=== PATIENT | female | born 1950 | race Caucasian/White ===

== ENCOUNTER 2020-09-11 12:12 | Emergency (ER) | payer OTHER ==
[~2020-09-11] VITALS: Ht 170.2 cm; Wt 116.4 kg
[~2020-09-11 12:12] MED LIST: ALDACTONE50 MG; CARDURA4 MG; CARTIA XT180 M1; CYCLOBENZAPRINE10 MG; FOLIC ACID1 MG; HYDRALAZINE 2525 MG; HYDROCODONE-APA1 TA1; LEVOTHYROXINE0.05 MG; MAGNESIUM OXID400 MG; METFORMIN HCL500 MG; MIRAPEX1.5 MG; OMEPRAZOLE40 MG; PAXIL10 MG; PRINIVIL20 MG; PROAIR HFA8.5 GM; SEROQUEL 50 MG50 MG; TOPROL XL100 MG; VALIUM5 MG; VITAMIN D2000 UNIT; XALATAN2.5 ML
[2020-09-11] MEDS ORDERED: VICTOZA0.6 MG/0.1 SUBQ (12:30)
[2020-09-11] MEDS ORDERED: DULOXETINE HCL60 MG PO (12:32)
[2020-09-11] MEDS ORDERED: VITAMIN D (12:34)
[2020-09-11] MEDS ORDERED: VITAMIN B12 (12:36)
[2020-09-11] MEDS ORDERED: MIRAPEX1 MG PO (12:37)
[2020-09-11] MEDS ORDERED: SEROQUEL 100 M100 M1 PO (12:37)
[2020-09-11 12:41] LABS: ABSOLUTE BASOPHILS 0.1 thou/uL (0.0-0.2); ABSOLUTE EOSINOPHILS 0.3 thou/uL (0.0-0.7); ABSOLUTE LYMPHOCYTES 1.6 thou/uL (0.8-5.3); ABSOLUTE MONOCYTES 0.8 thou/uL (0.0-1.2); ABSOLUTE NEUTROPHILS 5.6 thou/uL (1.6-8.1); BASOPHILS 1.4 %; EOSINOPHILS 3.1 %; HEMATOCRIT 34.3 % (37.0-47.0); HEMOGLOBIN 11.5 gm/dL (12.0-15.0); LYMPHOCYTES 19.2 %; MCH 31.9 pg (26.0-34.0); MCHC 33.5 g/dL (28.0-37.0); MCV 95.2 fL (80.0-100.0); MONOCYTES 9.2 %; MPV 7.6 fl. (7.2-11.1); NUCLEATED RBCS 0 /100WBC; PLATELET COUNT* 286 thou/uL (150-400); POLYS 67.1 %; RBC 3.61 mil/uL (4.20-5.00); RDW-CV 12.6 % (10.5-14.5); WBC 8.3 thou/uL (4.0-11.0)
[2020-09-11 12:50] LABS: CALCIUM 8.5 mg/dL (8.5-10.1); CREATININE 1.1 mg/dL (0.6-1.3); POTASSIUM 4.7 mmol/L (3.5-5.1)
[2020-09-11 12:54] LABS: ALBUMIN 3.7 g/dL (3.4-5.0); INR 0.9; PROTIME 10.1 Seconds (9.20-11.50); TOTAL BILIRUBIN 0.2 mg/dL (<0.1-1.0)
[2020-09-11] MEDS ORDERED: AUGMENTIN 500-1 EACH PO (14:41)
[2020-09-11 14:52] VITALS: BP 114/65
== END 2020-09-11 14:45 | disposition home or self-care (01) ==
LOC: M.ERS 12:12
PROVIDERS: Personal Emergency Response Attendant
DX: L03.116 Cellulitis of left lower limb (principal); I10 Essential (primary) hypertension; J44.9 Chronic obstructive pulmonary disease, unspecified; M06.9 Rheumatoid arthritis, unspecified; E11.41 Type 2 diabetes mellitus with diabetic mononeuropathy; Z88.6 Allergy status to analgesic agent; Z88.5 Allergy status to narcotic agent; Z88.8 Allergy status to other drugs, medicaments and biological substances